=== PATIENT | female | born 1955 | race Caucasian/White ===

== ENCOUNTER 2023-09-15 07:00 | Outpatient (CLI) | payer BC, OTHER ==
--- NOTE | 2023-09-15 20:19 | XRAY Report ---
PROCEDURE: Chest 2V INDICATIONS: COUGH/WHEEZING TECHNIQUE: 2 views of the chest were obtained. COMPARISON: None. FINDINGS: Surgical changes and devices: None. Lungs and pleura: No pleural effusions or pneumothorax. Lungs are clear. Mediastinum: Mediastinal contours appear normal. Heart size is normal. Bones and chest wall: No suspicious bony lesions. Overlying soft tissues appear unremarkable. IMPRESSION: Normal two-view chest x-ray Reviewed by: Trey Treadwell MD on 09/15/2023 7:18 PM AKTEE Approved by: Trey Treadwell MD on 09/15/2023 7:18 PM AKDT Station ID: [id number]
== END 2023-09-15 23:59 | disposition home or self-care (01) ==
LOC: DI.S 07:00
PROVIDERS: ATTEND Registered Nurse
DX: R05.1 Acute cough (principal); R06.2 Wheezing